=== PATIENT | male | born 1990 | race African-American/Black ===

== ENCOUNTER 2016-11-18 14:17 | Emergency (ER) | payer MEDICAID ==
--- NOTE | 2016-11-18 14:25 | ER Document Report ---
ED Medical Screen (RME) - General Stated Complaint: EYE PAIN Notes: Patient is a 26-year-old male presents emergency department after trauma to the left eye. this am Patient states that his dog stepped on his eye, now with pain and swelling. vision intact, conjuntival erythema. EOM intact, no evidence of globe rupture I have greeted and performed a rapid initial assessment of this patient. A comprehensive ED assessment and evaluation of the patient, analysis of test results and completion of the medical decision making process will be conducted by additional ED providers. TRAVEL OUTSIDE OF THE [place] IN LAST 30 DAYS: No - Related Data Allergies/Adverse Reactions: No Known Allergies Allergy (Verified 11/18/16 14:23) Past Medical History - Social History Family history: Reviewed & Not Pertinent Pulmonary Medical History: Reports: Hx Asthma Psychiatric Medical History: Reports: Hx Attention Deficit Hyperactivity Disorder, Hx Bipolar Disorder, Hx Depression Past Surgical History: Reports: Hx Urinary Tract Surgery - Immunizations Immunizations up to date: Yes Hx Diphtheria, Pertussis, Tetanus Vaccination: Yes
[2016-11-18] MEDS ORDERED: ACETAMINOPHEN 325 MG TABLET PO ONE (14:26)
[2016-11-18] MEDS ORDERED: KETOROLAC TROMETHAMINE 0.45% 4 DROP/0.4 ML DROPERETTE OS ONE (14:54)
[2016-11-18] MEDS ORDERED: KETOROLAC TROMETHAMINE 0.45% 4 DROP/0.4 ML DROPERETTE ONE (14:54)
[2016-11-18] MEDS ORDERED: POLYMYXIN B SULFATE/TMP OPH SOLN (10 ML/ER DISP) OS ONE (14:54)
--- NOTE | 2016-11-18 14:59 | ER Document Report ---
ED Eye Complaint - General Mode of Arrival: Ambulatory Information source: Patient, Parent TRAVEL OUTSIDE OF THE [place] IN LAST 30 DAYS: No - HPI Patient complains to provider of: left eye injury Onset: This morning Associated symptoms: Other - See above - General Chief Complaint: Eye Injury Stated Complaint: EYE PAIN Notes: Patient is a 26 year old male who presents to the emergency department with his mother complaining of an injury to his left eye. Patient states that this morning he was in bed when his large dog stepped on his eye, patient reports the pain was excruciating and he fell out of bed. Per mother, patient had been using a warm compress over the eye at home to relieve any swelling. (ZAHIDA SEVILLA) - Related Data Allergies/Adverse Reactions: No Known Allergies Allergy (Verified 11/18/16 14:23) Past Medical History - General Information source: Patient - Social History Smoking Status: Unknown if Ever Smoked Chew tobacco use (# tins/day): No Frequency of alcohol use: None Drug Abuse: None Family History: Reviewed & Not Pertinent Patient has suicidal ideation: No Patient has homicidal ideation: No Pulmonary Medical History: Reports: Hx Asthma Psychiatric Medical History: Reports: Hx Attention Deficit Hyperactivity Disorder, Hx Bipolar Disorder, Hx Depression Past Surgical History: Reports: Hx Urinary Tract Surgery - Immunizations Immunizations up to date: Yes Hx Diphtheria, Pertussis, Tetanus Vaccination: Yes Review of Systems - Review of Systems Constitutional: No symptoms reported EENT: See HPI, Eye pain Cardiovascular: No symptoms reported Respiratory: No symptoms reported Gastrointestinal: No symptoms reported Genitourinary: No symptoms reported Male Genitourinary: No symptoms reported Musculoskeletal: No symptoms reported Skin: No symptoms reported Hematologic/Lymphatic: No symptoms reported Neurological/Psychological: No symptoms reported -: Yes All other systems reviewed and negative Physical Exam - Vital signs Interpretation: Normal - General General appearance: Appears well, Alert - HEENT Head: Normocephalic, Atraumatic Eyes: Other - redness and edema to lids of left eye, photophobic Conjunctiva: Injected - left eye slightly injected and red Cornea: Corneal abrasion - Left inferior medial cornea abrasion about 2mm across Extraocular movements intact: Yes - Respiratory Respiratory status: No respiratory distress - Extremities General upper extremity: Normal inspection General lower extremity: Normal inspection - Neurological Neuro grossly intact: Yes Cognition: Normal Orientation: AAOx4 Imelda Coma Scale Eye Opening: Spontaneous Vanderbilt Coma Scale Verbal: Oriented Imelda Coma Scale Motor: Obeys Commands Imelda Coma Scale Total: 15 Speech: Normal - Psychological Associated symptoms: Normal affect, Normal mood - Skin Skin Temperature: Warm Skin Moisture: Dry Skin Color: Normal Course - Re-evaluation Re-evalutation: 11/18/16 15:20 PROCEDURE: The left eye was anesthetized with tetracaine drops. These stain was used showing a 2 mm abrasion fairly dense uptake, in the left inferior medial cornea. This was irrigated out with normal saline. Homatropine drops were applied. Later, ketorolac drops were applied and polymyxin sulfate eyedrops were applied. 11/18/16 15:43 When the patient sat up to be discharged, he got nauseous and vomited once. When I went in to see him earlier to put in the ketorolac drops, he was sitting up and had complained of feeling dizzy and nauseous. He was given a dose of Zofran now and some to go home in case he continues to have his nauseousness. (SAYRA MONREAL) Discharge - Discharge Clinical Impression: Left corneal abrasion Qualifiers: Encounter type: initial encounter Qualified Code(s): S05.02XA - Injury of conjunctiva and corneal abrasion without foreign body, left eye, initial encounter Condition: Stable Disposition: HOME, SELF-CARE Additional Instructions: Corneal Abrasion: You have a corneal abrasion, a scratch on the surface of the eye. The pain of a corneal abrasion feels like a sharp particle in the eye. Usually, antibiotics are placed in the eye to prevent infection. Occasionally, medication will be placed in the eye to dilate the pupil. This is done to relieve some of your discomfort and is only temporary. Pain medication may be required. Don't drive or operate machinery until you have the use of both your eyes. The abrasion usually is healed in one or two days. A follow-up examination to confirm healing is recommended. Call the doctor or return at once if you develop severe pain, decreasing vision, eye swelling, or purulent drainage. PUT THE KETOROLAC EYEDROP--ONE DROP IN THE LEFT EYE EVERY FOUR HOURS. PUT THE POLYMIXIN SULFATE DROPS--ONE DROP EVERY THREE HOURS TODAY, THEN EVERY FOUR HOURS STARTING TOMORROW. USE COLD COMPRESSES ON THE EYE. AVOID WIND AND SUNLIGHT. REST. FOLLOW UP WITH AN EYE DOCTOR ON SUNDAY IF NOT IMPROVING. Prescriptions: Ketorolac Tromethamine [Acular] 1 drop OS Q4 PRN #5 ml PRN Reason: Scribe Attestation: 11/18/16 15:29 I personally performed the services described in the documentation, reviewed and edited the documentation which was dictated to the scribe in my presence, and it accurately records my words and actions. (SAYRA MONREAL) Scribe Documentation - Scribe Written by Iram:: iram Trujillo, 11/18/16, [id number] acting as scribe for :: Sen
[2016-11-18] MEDS ORDERED: ONDANSETRON ODT 4 MG TAB (6 TAB/DSPK) PO PRN (15:43)
[2016-11-18 16:02] VITALS: BP 144/98
== END 2016-11-18 15:57 | disposition home or self-care (01) ==
LOC: ER 14:17
DX: S05.02XA Injury of conjunctiva and corneal abrasion without foreign body, left eye, initial encounter (principal); H57.12 Ocular pain, left eye; W54.8XXA Other contact with dog, initial encounter
CPT/HCPCS: 99283; J3490 ×3

== ENCOUNTER 2017-10-18 10:42 | Emergency (ER) | payer MEDICAID ==
--- NOTE | 2017-10-18 11:37 | ER Document Report ---
ED Animal Bite - General Chief Complaint: Dog Bite Stated Complaint: DOG BITE Time Seen by Provider: 10/18/17 11:27 Mode of Arrival: Ambulatory Information source: Patient Notes: Patient is a 27-year-old male who presents to the ER today for dog bites to his right arm. Patient states that his 2 dogs were fighting each other over a bone whenever he went to break them up and his right arm got bitten by 1 of them. Patient states that they are up-to-date on their rabies shots and that he is up- to-date on his tetanus shot. He states bleeding is controlled with Band-Aids. TRAVEL OUTSIDE OF THE [place] IN LAST 30 DAYS: No - Related Data Allergies/Adverse Reactions: No Known Allergies Allergy (Verified 11/18/16 14:23) Past Medical History - General Information source: Patient - Social History Smoking Status: Unknown if Ever Smoked Family History: Reviewed & Not Pertinent Pulmonary Medical History: Reports: Hx Asthma Renal/ Medical History: Denies: Hx Peritoneal Dialysis Psychiatric Medical History: Reports: Hx Attention Deficit Hyperactivity Disorder, Hx Bipolar Disorder, Hx Depression Past Surgical History: Reports: Hx Urinary Tract Surgery - Immunizations Immunizations up to date: Yes Hx Diphtheria, Pertussis, Tetanus Vaccination: Yes Review of Systems - Review of Systems Constitutional: No symptoms reported EENT: No symptoms reported Cardiovascular: No symptoms reported Respiratory: No symptoms reported Gastrointestinal: No symptoms reported Genitourinary: No symptoms reported Male Genitourinary: No symptoms reported Musculoskeletal: No symptoms reported Skin: See HPI Hematologic/Lymphatic: No symptoms reported Neurological/Psychological: No symptoms reported Physical Exam - Vital signs Vitals: Temp Pulse Resp BP Pulse Ox 98.6 F 76 16 163/109 H 100 10/18/17 11:06 10/18/17 11:06 10/18/17 11:06 10/18/17 11:06 10/18/17 11:06 - Notes Notes: PHYSICAL EXAMINATION: GENERAL: Well-appearing and in no acute distress. HEAD: Atraumatic, normocephalic. EYES: Pupils equal round and reactive to light, extraocular movements intact, sclera anicteric, conjunctiva are normal. NECK: Normal range of motion, supple without lymphadenopathy LUNGS: CTAB and equal. No wheezes rales or rhonchi. HEART: Regular rate and rhythm without murmurs EXTREMITIES: Normal range of motion, no pitting edema. No cyanosis. NEUROLOGICAL: Cranial nerves grossly intact. Normal sensory/motor exams. PSYCH: Normal mood, normal affect. SKIN: Warm, Dry, normal turgor, 4 small puncture wounds/lacerations to right forearm, right thumb, right dorsal hand with slight edema and no bleeding Course - Re-evaluation Re-evalutation: 10/18/17 12:40 Wounds were cleaned and Shur-Clens and saline, bandaged, x-rays negative of the hand and forearm for any acute pathology. Patient will be placed on Augmentin and given something for pain. - Vital Signs Vital signs: Temp Pulse Resp BP Pulse Ox 98.6 F 76 16 163/109 H 100 10/18/17 11:06 10/18/17 11:06 10/18/17 11:06 10/18/17 11:06 10/18/17 11:06 Discharge - Discharge Clinical Impression: Dog bite Qualifiers: Encounter type: initial encounter Qualified Code(s): W54.0XXA - Bitten by dog, initial encounter Condition: Stable Disposition: HOME, SELF-CARE Additional Instructions: Return immediately for any new or worsening symptoms. Follow up with primary care provider, call tomorrow to make followup appointment. Prescriptions: Amox Tr/Potassium Clavulanate [Augmentin 875-125 Tablet] 1 tab PO BID 10 Days tablet Hydrocodone/Acetaminophen [Roach 5-325 mg Tablet] 1 tab PO Q4 PRN #10 tablet PRN Reason: Forms: Return to Work
[2017-10-18] MEDS ORDERED: HYDROCODONE/ACETAMINOPHEN 5-325 MG TABLET PO ONE (11:39)
[2017-10-18] MEDS ORDERED: AMOXICILLIN TR/POT CLAVULANATE 500-125 MG TAB PO ONE (11:39)
--- NOTE | 2017-10-18 12:35 | RADIOLOGY REPORT (SQ) ---
EXAM DESCRIPTION: FOREARM RIGHT COMPLETED DATE/TIME: 10/18/2017 11:58 am REASON FOR STUDY: dog bite COMPARISON: None. NUMBER OF VIEWS: Two views. TECHNIQUE: Two radiographic images acquired of the right forearm, including elbow and wrist in at le ast one projection. LIMITATIONS: None. FINDINGS: MINERALIZATION: Normal. BONES: No acute fracture. No worrisome bone lesions. SOFT TISSUES: No obvious swelling or foreign body. OTHER: No other significant finding. IMPRESSION: NEGATIVE STUDY OF THE RIGHT FOREARM. NO RADIOGRAPHIC EVIDENCE OF ACUTE INJURY. TECHNICAL DOCUMENTATION: JOB ID: [id number] [employer]- All Rights Reserved
--- NOTE | 2017-10-18 12:35 | RADIOLOGY REPORT (SQ) ---
EXAM DESCRIPTION: HAND RIGHT 3 VIEWS COMPLETED DATE/TIME: 10/18/2017 11:58 am REASON FOR STUDY: dog bite COMPARISON: 08/17/2015 EXAM PARAMETERS: NUMBER OF VIEWS: Three views. TECHNIQUE: AP, lateral and oblique radiographic images acquired of the right hand. LIMITATIONS: None. FINDINGS: MINERALIZATION: Normal. BONES: No acute fracture or dislocation. No worrisome bone lesions. JOINTS: No effusions. SOFT TISSUES: No soft tissue swelling. No foreign body. OTHER: No other significant finding. IMPRESSION: NEGATIVE STUDY OF THE RIGHT HAND. NO RADIOGRAPHIC EVIDENCE OF ACUTE INJURY. TECHNICAL DOCUMENTATION: JOB ID: [id number] [employer]- All Rights Reserved
[2017-10-18 13:18] VITALS: BP 147/100
== END 2017-10-18 13:18 | disposition home or self-care (01) ==
LOC: ER 10:42
DX: S51.851A Open bite of right forearm, initial encounter (principal); S61.051A Open bite of right thumb without damage to nail, initial encounter; S61.451A Open bite of right hand, initial encounter; W54.0XXA Bitten by dog, initial encounter; Y93.K9 Activity, other involving animal care; J45.909 Unspecified asthma, uncomplicated
CPT/HCPCS: 99283; 73090; 73130; J3490

== ENCOUNTER 2018-04-08 12:33 | Emergency (ER) | payer MEDICAID ==
[2018-04-08 12:56] VITALS: BP 142/90
[2018-04-08] MEDS ORDERED: METOCLOPRAMIDE HCL ORAL SOLN 10 MG/10 ML UDCUP PO ONE (13:09)
[2018-04-08] MEDS ORDERED: LIDOCAINE 2% VISCOUS SOLN 20 ML UDCUP PO ONE (13:09)
[2018-04-08] MEDS ORDERED: MAG HYDROX/AL HYDROX/SIMETH SUSP 30 ML UDCUP PO ONE (13:09)
--- NOTE | 2018-04-08 13:11 | ER Document Report ---
ED GI/ - General Chief Complaint: Abdominal Pain Stated Complaint: STOMACH PAIN Time Seen by Provider: 04/08/18 13:08 Notes: Chief complaint: abdominal pain: History of complain:( obtained from----patient) 27 years old male had an endoscopy done 2 weeks ago, since then having pain over the left side of the epigastric to abdominal pain. Area between the umbilicus and epigastrium. He was concerned he might have an ulcer or perforation therefore came to the ED. Denies any fever chills. Denies any nausea vomiting diarrhea. Denies any melena or bloody stool. Denies any other constitutional symptoms. Onset: As above Duration: As above Severity: Mild to moderate Quality: Sharp Context: As above Exacerbating factor and relieving factors: None REVIEW OF SYSTEMS: CONSTITUTIONAL : Denies fever, chills, or sweats. Denies recent illness. EENT: Denies eye, ear, throat, or mouth pain or symptoms. Denies nasal or sinus congestion or discharge. Denies throat, tongue, or mouth swelling or difficulty swallowing. CARDIOVASCULAR: Denies chest pain. Denies palpitations or racing or irregular heart beat. Denies ankle edema. RESPIRATORY: Denies cough, cold, or chest congestion. Denies shortness of breath, difficulty breathing, or wheezing. GASTROINTESTINAL: Denies distention. Denies nausea, vomiting, or diarrhea. Denies blood in vomitus, stools, or per rectum. Denies black, tarry stools. Denies constipation. GENITOURINARY: Denies difficulty urinating, painful urination, burning, frequency, blood in urine, or discharge. FEMALE GENITOURINARY: Denies vaginal bleeding, heavy or abnormal periods, irregular periods. Denies vaginal discharge or odor. MUSCULOSKELETAL: Denies back or neck pain or stiffness. Denies joint pain or swelling. SKIN: Denies rash, lesions or sores. HEMATOLOGIC : Denies easy bruising or bleeding. LYMPHATIC: Denies swollen, enlarged glands. NEUROLOGICAL: Denies confusion or altered mental status. Denies passing out or loss of consciousness. Denies dizziness or lightheadedness. Denies headache. Denies weakness or paralysis or loss of use of either side. Denies problems with gait or speech. Denies sensory loss, numbness, or tingling. Denies seizures. PSYCHIATRIC: Denies anxiety or stress. Denies depression, suicidal ideation, or homicidal ideation. ALL OTHER SYSTEMS REVIEWED AND NEGATIVE. PHYSICAL EXAMINATION: GENERAL: Well-appearing, well-nourished and in no acute distress. HEAD: Atraumatic, normocephalic. EYES: Pupils equal round and reactive to light, extraocular movements intact, conjunctiva are normal. ENT: Nares patent, oropharynx clear without exudates. Moist mucous membranes. NECK: Normal range of motion, supple without lymphadenopathy LUNGS: Breath sounds clear to auscultation bilaterally and equal. No wheezes rales or rhonchi. HEART: Regular rate and rhythm without murmurs ABDOMEN: Soft, nontender, nondistended abdomen. No guarding, no rebound. No masses appreciated. Female : deferred Musculoskeletal: Normal range of motion, no pitting or edema. No cyanosis. NEUROLOGICAL: Cranial nerves grossly intact. Normal speech, normal gait. Normal sensory, motor exams PSYCH: Normal mood, normal affect. SKIN: Warm, Dry, normal turgor, no rashes or lesions noted. Dictation was performed using [employer] voice recognition software TRAVEL OUTSIDE OF THE [place] IN LAST 30 DAYS: No - HPI Notes: 04/08/18 13:10 Dictated - Related Data Allergies/Adverse Reactions: No Known Allergies Allergy (Verified 04/08/18 13:20) Past Medical History - Social History Smoking Status: Former Smoker Cigarette use (# per day): No Chew tobacco use (# tins/day): No Frequency of alcohol use: Rare Drug Abuse: None Lives with: Family Family History: Reviewed & Not Pertinent Pulmonary Medical History: Reports: Hx Asthma Renal/ Medical History: Denies: Hx Peritoneal Dialysis Psychiatric Medical History: Reports: Hx Attention Deficit Hyperactivity Disorder, Hx Bipolar Disorder, Hx Depression Past Surgical History: Reports: Hx Urinary Tract Surgery - Immunizations Immunizations up to date: Yes Hx Diphtheria, Pertussis, Tetanus Vaccination: Yes Review of Systems - Review of Systems Notes: Dictated Physical Exam - Vital signs Vitals: Temp Pulse Resp BP Pulse Ox 98.6 F 62 16 142/90 H 100 04/08/18 12:53 04/08/18 12:53 04/08/18 12:53 04/08/18 12:53 04/08/18 12:53 - Notes Notes: Dictated Course - Re-evaluation Re-evalutation: 04/08/18 16:33 Patient eloped - Vital Signs Vital signs: Temp Pulse Resp BP Pulse Ox 98.6 F 62 16 142/90 H 100 04/08/18 12:53 04/08/18 12:53 04/08/18 12:53 04/08/18 12:53 04/08/18 12:53 Discharge - Discharge Disposition: ELOPED
== END 2018-04-08 16:20 | disposition left against medical advice (07) ==
LOC: ER 12:33
DX: R10.9 Unspecified abdominal pain (principal)
CPT/HCPCS: 99281; 36415; J3490 ×3

== ENCOUNTER 2018-07-14 09:42 | Emergency (ER) | payer MEDICAID ==
[2018-07-14 09:53] VITALS: BP 153/88
--- NOTE | 2018-07-14 09:57 | ER Document Report ---
ED Medical Screen (RME) - General Chief Complaint: Chest Congestion Stated Complaint: CONGESTION Time Seen by Provider: 07/14/18 09:56 Mode of Arrival: Ambulatory Information source: Patient TRAVEL OUTSIDE OF THE [place] IN LAST 30 DAYS: No - HPI Patient complains to provider of: productive cough Onset: Yesterday - pt with productive cough and chills for the past 1-2 days - Related Data Allergies/Adverse Reactions: No Known Allergies Allergy (Verified 07/14/18 09:44) Past Medical History - Social History Family history: Reviewed & Not Pertinent Pulmonary Medical History: Reports: Hx Asthma Renal/ Medical History: Denies: Hx Peritoneal Dialysis Psychiatric Medical History: Reports: Hx Attention Deficit Hyperactivity Disorder, Hx Bipolar Disorder, Hx Depression Past Surgical History: Reports: Hx Urinary Tract Surgery - Immunizations Immunizations up to date: Yes Hx Diphtheria, Pertussis, Tetanus Vaccination: Yes Physical Exam - Vital signs Vitals: Temp Pulse Resp BP Pulse Ox 97.9 F 67 18 153/88 H 99 07/14/18 09:51 07/14/18 09:51 07/14/18 09:51 07/14/18 09:51 07/14/18 09:51 Course - Vital Signs Vital signs: Temp Pulse Resp BP Pulse Ox 97.9 F 67 18 153/88 H 99 07/14/18 09:51 07/14/18 09:51 07/14/18 09:51 07/14/18 09:51 07/14/18 09:51
[2018-07-14 10:12] LABS: ABSOLUTE EOSINOPHILS # (AUTO) 0.2 10^3/uL (0.0-0.6); ABSOLUTE LYMPHOCYTES (AUTO) 0.8 10^3/uL (0.5-4.7); ABSOLUTE MONOCYTES (AUTO) 0.7 10^3/uL (0.1-1.4); ABSOLUTE NEUT (AUTO) 6.2 10^3/uL (1.7-8.2); BASOPHILS % (AUTO) 0.4 % (0-2); EOSINOPHILS % (AUTO) 2.2 % (0-6); HEMATOCRIT 46.4 % (37.9-51.0); HEMOGLOBIN 15.9 g/dL (13.5-17.0); MEAN CORPUSCULAR HEMOGLOBIN 32.1 pg (27.0-33.4); MEAN CORPUSCULAR HGB CONC 34.3 g/dL (32.0-36.0); MEAN CORPUSCULAR VOLUME 94 fl (80-97); MONOCYTES % (AUTO) 8.5 % (3-13); PLATELET COUNT 168 10^3/uL (150-450); RED BLOOD COUNT 4.96 10^6/uL (4.35-5.55); RED CELL DISTRIBUTION WIDTH 13.1 % (11.5-14.0); SEGMENTED NEUTROPHILS % (AUTO) 78.9 % (42-78); TOTAL CELLS COUNTED % (AUTO) 100 %; WHITE BLOOD COUNT 7.9 10^3/uL (4.0-10.5)
[2018-07-14 10:28] LABS: ALANINE AMINOTRANSFERASE 11 U/L (21-72); ALKALINE PHOSPHATASE 60 U/L (38-126); ANION GAP 11 (5-19); ASPARTATE AMINO TRANSFERASE 16 U/L (17-59); BILIRUBIN,DIRECT 0.3 mg/dL (0.0-0.4); BILIRUBIN,TOTAL 0.7 mg/dL (0.2-1.3); BLOOD UREA NITROGEN 6 mg/dL (7-20); CALCIUM 10.2 mg/dL (8.4-10.2); CARBON DIOXIDE 31 mmol/L (22-30); CHLORIDE 102 mmol/L (98-107); GLUCOSE 114 mg/dL (75-110); POTASSIUM 4.8 mmol/L (3.6-5.0); SODIUM 144.4 mmol/L (137-145)
[2018-07-14] MEDS ORDERED: AZITHROMYCIN 250 MG TABLET PO ONE (10:29)
[2018-07-14] MEDS ORDERED: ALBUTEROL SULFATE HFA (90 MCG/PUFF) 8 GM MDI (1 MDI/ER DISP) IH ONE (10:29)
[2018-07-14] MEDS ORDERED: PREDNISONE 20 MG TABLET PO ONE (10:29)
--- NOTE | 2018-07-14 10:29 | ER Document Report ---
ED General <SAYRA MONREAL - Last Filed: 07/14/18 10:35> - General Mode of Arrival: Ambulatory Information source: Patient TRAVEL OUTSIDE OF THE [place] IN LAST 30 DAYS: No <ARTEMIO ALMEIDA - Last Filed: 07/14/18 10:47> - General Chief Complaint: Chest Congestion Stated Complaint: CONGESTION Time Seen by Provider: 07/14/18 09:56 Notes: Patient is a 27 year old male with asthma presents to the emergency department complaining of cough and congestion. Patient states he feels he has a "head cold " and presented to the emergency department today due to his symptoms becoming worse. Patient states he no longer has an inhaler. (ARTEMIO ALMEIDA) - Related Data Allergies/Adverse Reactions: No Known Allergies Allergy (Verified 07/14/18 09:44) Past Medical History - General Information source: Patient - Social History Smoking Status: Never Smoker Drug Abuse: Marijuana Family History: Reviewed & Not Pertinent Patient has suicidal ideation: No Patient has homicidal ideation: No Pulmonary Medical History: Reports: Hx Asthma Psychiatric Medical History: Reports: Hx Attention Deficit Hyperactivity Disorder, Hx Bipolar Disorder, Hx Depression Past Surgical History: Reports: Hx Urinary Tract Surgery - Immunizations Immunizations up to date: Yes Hx Diphtheria, Pertussis, Tetanus Vaccination: Yes <ARTEMIO ALMEIDA - Last Filed: 07/14/18 10:47> Review of Systems - Review of Systems Constitutional: No symptoms reported EENT: See HPI Cardiovascular: No symptoms reported Respiratory: See HPI, Cough Gastrointestinal: No symptoms reported Genitourinary: No symptoms reported Male Genitourinary: No symptoms reported Musculoskeletal: No symptoms reported Skin: No symptoms reported Hematologic/Lymphatic: No symptoms reported Neurological/Psychological: No symptoms reported -: Yes All other systems reviewed and negative <ARTEMIO ALMEIDA - Last Filed: 07/14/18 10:47> Physical Exam <SAYRA MONREAL - Last Filed: 07/14/18 10:35> <ARTEMIO ALMEIDA - Last Filed: 07/14/18 10:47> - Vital signs Vitals: Temp Pulse Resp BP Pulse Ox 97.9 F 67 18 153/88 H 99 07/14/18 09:51 07/14/18 09:51 07/14/18 09:51 07/14/18 09:51 07/14/18 09:51 - Notes Notes: GENERAL: Alert, interacts well. No acute distress. HEAD: Normocephalic, atraumatic. EYES: Pupils equal, round, and reactive to light. Extraocular movements intact. ENT: Oral mucosa moist, tongue midline. Nares patent, no nasal septal hematoma, TM's intacts, small amount of erythema bilaterally. NECK: Full range of motion. Supple. Trachea midline. LUNGS: Rhonchi and wheezing on the left.. No respiratory distress. HEART: Regular rate and rhythm. No murmurs, gallops, or rubs. ABDOMEN: Soft, non-tender. Non-distended. Bowel sounds present in all 4 quadrants. EXTREMITIES: Moves all 4 extremities spontaneously. NEUROLOGICAL: Alert and oriented x3. Normal speech. PSYCH: Normal affect, normal mood. SKIN: Warm, dry, normal turgor. No rashes or lesions noted. (ARTEMIO ALMEIDA) Course - Laboratory Result Diagrams: 07/14/18 10:00 07/14/18 10:00 <SAYRA MONREAL - Last Filed: 07/14/18 10:35> - Laboratory Result Diagrams: 07/14/18 10:00 07/14/18 10:00 <ARTEMIO ALMEIDA - Last Filed: 07/14/18 10:47> - Vital Signs Vital signs: Temp Pulse Resp BP Pulse Ox 97.9 F 67 18 153/88 H 99 07/14/18 09:51 07/14/18 09:51 07/14/18 09:51 07/14/18 09:51 07/14/18 09:51 - Laboratory Laboratory results interpreted by me: 07/14/18 07/14/18 10:00 10:00 Seg Neutrophils % 78.9 H Lymphocytes % 10.0 L Carbon Dioxide 31 H BUN 6 L Glucose 114 H AST 16 L ALT 11 L Discharge <SAYRA MONREAL - Last Filed: 07/14/18 10:35> <ARTEMIO ALMEIDA - Last Filed: 07/14/18 10:47> - Discharge Clinical Impression: Viral upper respiratory tract infection with cough Asthmatic bronchitis Qualifiers: Asthma severity: mild Asthma persistence: intermittent Asthma complication type : uncomplicated Qualified Code(s): J45.20 - Mild intermittent asthma, uncomplicated Condition: Stable Disposition: HOME, SELF-CARE Additional Instructions: Bronchitis with Bronchospasm (Wheezing) You have bronchitis with bronchospasm (wheezing). Sometimes people develop wheezing with a chest cold. This occurs either because of an underlying tendency toward asthma or because the virus itself irritates the bronchial tubes. This irritation causes cough, shortness of breath, and wheezing. Emergency treatment of bronchospasm may include adrenaline shots or bronchodilator aerosol. You may feel lightheaded and have a rapid pulse for an hour or two. Rest and get plenty of fluids. At home, we'll treat you with a bronchodilator inhaler. Corticosteroids may be required for some patients. Until you recover, avoid chemical fumes, dusts, pollens, and exercising in very cold or dry air. If you smoke, stop now! Most cases of bronchitis get better without antibiotics. We prescribe antibiotics when we believe bacteria are damaging your airways, or if there's high risk the bronchitis will worsen into pneumonia. Increase your fluid intake. A cool mist humidifier may make your lungs more comfortable. An expectorant (cough medicine that loosens phlegm) can help. Repeated episodes of bronchitis and bronchospasm may result in lung damage -- for example, chronic bronchitis, recurrent pneumonias, or emphysema. If you develop a fever, increased wheezing, chest pain, or severe shortness of breath, you should contact the doctor immediately. Use the inhaler 1-2 puffs every 4 hours for wheezing as needed. Start taking the azithromycin and the prednisone tomorrow as prescribed. Try Robitussin-DM to help with your cough. Drink plenty of fluids get plenty of rest. Follow-up with your primary care provider if not improving over the next several days. RETURN TO THE EMERGENCY ROOM IF ANY NEW OR WORSENING SYMPTOMS. Prescriptions: Azithromycin [Zithromax 250 mg Tablet] 250 mg PO DAILY #4 tablet Prednisone [Deltasone 10 mg Tablet] 10 mg PO ASDIR PRN #21 tablet PRN Reason: Scribe Attestation: 07/14/18 10:31 I personally performed the services described in the documentation, reviewed and edited the documentation which was dictated to the scribe in my presence, and it accurately records my words and actions. (SAYRA MONREAL) Scribe Documentation - Scribe Written by Scribe:: Alyssa De Dios, 07/14/2018 10:41 acting as scribe for :: Sen <ARTEMIO ALMEIDA - Last Filed: 07/14/18 10:47>
== END 2018-07-14 10:49 | disposition home or self-care (01) ==
LOC: ER 09:42
DX: J45.20 Mild intermittent asthma, uncomplicated (principal); J06.9 Acute upper respiratory infection, unspecified; B97.89 Other viral agents as the cause of diseases classified elsewhere; R09.89 Other specified symptoms and signs involving the circulatory and respiratory systems; R05 Cough; F12.10 Cannabis abuse, uncomplicated
CPT/HCPCS: 99283; 36415; 85025; 80053; Q0144; J7512; J3490

== ENCOUNTER 2020-05-17 17:28 | Emergency (ER) | payer MEDICAID ==
[2020-05-17] MEDS ORDERED: IBUPROFEN 600 MG TABLET PO ONE (18:49)
[2020-05-17] MEDS ORDERED: HYDROCODONE/ACETAMINOPHEN 5-325 MG (6 TAB/ER DISP) PO PRN (18:59)
--- NOTE | 2020-05-17 19:02 | ER Document Report ---
HPI - HPI Time Seen by Provider: 05/17/20 18:26 Pain Level: 5 Context: Patient is a 29-year-old male who presents emergency department with a chief complaint of right ankle pain. Patient states that he was pressure washing and he had his setting on the highest pressure and the pressure went over his ankle. He then saw that it was bleeding and his friend wrapped it tightly. He then continued to clean. This happened around noon today. He is able to move his foot. - ROS Systems Reviewed and Negative: Yes All other systems reviewed and negative - CONSTITUTIONAL Constitutional: DENIES: Fever, Chills - GASTROINTESTINAL Gastrointestinal: DENIES: Abdominal Pain, Nausea, Patient vomiting - MUSCULOSKELETAL Musculoskeletal: REPORTS: Extremity pain - Right ankle - DERM Skin Color: Normal Skin Problems: Abrasion - Right anterior ankle Past Medical History - Social History Smoking Status: Never Smoker Family History: Reviewed & Not Pertinent Pulmonary Medical History: Reports: Hx Asthma Renal/ Medical History: Denies: Hx Peritoneal Dialysis Psychiatric Medical History: Reports: Hx Attention Deficit Hyperactivity Disorder, Hx Bipolar Disorder, Hx Depression Past Surgical History: Reports: Hx Urinary Tract Surgery - Immunizations Immunizations up to date: Yes Hx Diphtheria, Pertussis, Tetanus Vaccination: Yes Vertical Provider Document - CONSTITUTIONAL Agree With Documented VS: Yes Exam Limitations: No Limitations General Appearance: No Apparent Distress - INFECTION CONTROL TRAVEL OUTSIDE OF THE [place] IN LAST 30 DAYS: No - HEENT HEENT: Atraumatic, Normocephalic, PERRLA - NECK Neck: Normal Inspection - RESPIRATORY Respiratory: Breath Sounds Normal, No Respiratory Distress - CARDIOVASCULAR Cardiovascular: Regular Rate, Regular Rhythm Pulses: Normal: Posterior tibial, Dorsalis pedis - GI/ABDOMEN Gastrointestinal: Abdomen Soft, Abdomen Non-Tender - MUSCULOSKELETAL/EXTREMETIES Musculoskeletal/Extremeties: FROM, Tender - Right ankle - NEURO Level of Consciousness: Awake, Alert, Appropriate Motor/Sensory: No Motor Deficit, No Sensory Deficit - DERM Integumentary: Warm, Dry, No Rash Notes: Abrasion to right anterior ankle area Course - Re-evaluation Re-evalutation: 05/17/20 19:[address] Starkey, my attending. Discussed this case with him. He states that due to it being only water and not any chemicals, it would be appropriate to prescribe him some antibiotics. Capillary refill less than 3 seconds. Dorsalis pedis and posterior tibial pulses 2+. No vascular compromise noted. Patient states that he felt better after receiving ibuprofen and [place]. Follow- up precautions were given. Verbal discharge instructions were given to the patient. They verbalized understanding. They are stable for discharge. - Vital Signs Vital signs: Temp Pulse Resp BP Pulse Ox 99.2 F 79 16 164/94 H 99 05/17/20 18:08 05/17/20 18:08 05/17/20 18:08 05/17/20 18:08 05/17/20 18:08 Procedures - Immobilization Right Ankle Pre-Proc Neuro Vasc Exam: Normal Immobilizer type: Jono wrap, Crutches, Other - Bacitracin and Telfa Performed by: PCT Post-Proc Neuro Vasc Exam: Normal, Unchanged from pre-exam Alignment checked and good: Yes Discharge - Discharge Clinical Impression: Ankle pain Qualifiers: Chronicity: acute Laterality: right Qualified Code(s): M25.571 - Pain in right ankle and joints of right foot Ankle swelling Qualifiers: Laterality: right Qualified Code(s): M25.471 - Effusion, right ankle Condition: Stable Disposition: HOME, SELF-CARE Additional Instructions: You were seen today in the emergency department for ankle pain after being hit in the ankle with a mill washer. Use triple antibiotic ointment to the area and apply an nonadherent pad. Use the Jono wrap and crutches. Elevate your leg. You can take the [place] 1 tablet every 6 hours as needed for pain. Take ibuprofen 600 mg every 6 hours [id number] for swelling. Make sure to rest and elevate your leg. Take the antibiotics to prevent infection. Prescriptions: Cephalexin Monohydrate [Keflex 500 mg Capsule] 500 mg PO Q6H 5 Days #20 capsule Referrals: ALEXANDRIA RODRÍGUEZ MD [Primary Care Provider] - Follow up as needed
[2020-05-17 19:51] VITALS: BP 151/91
== END 2020-05-17 19:50 | disposition home or self-care (01) ==
LOC: ER 17:28
DX: M25.571 Pain in right ankle and joints of right foot (principal); M25.471 Effusion, right ankle
CPT/HCPCS: 99283; J3490